=== PATIENT | female | born 1975 | race Caucasian/White ===

== ENCOUNTER 2017-05-04 18:18 | Emergency (ER) | payer MEDICARE, MEDICAID ==
[~2017-05-04] VITALS: Ht 165.1 cm; Wt 124.0 kg
[~2017-05-04 18:18] MED LIST: ACET1TAB12 PO; ALBU8.5H8 IH; ATI1T PO; BUTA-281 PO; BUTA1CAP17 PO; DULO-31 PO; GABA600T2 PO; LAMO25TA PO; METH500T PO; ONDA4TAB9 PO; PRAZ2CAP2 PO; QUET400T PO; TIZA-248 PO
[2017-05-04 19:21] LABS: URINE HCG NEGATIVE (NEG)
[2017-05-04 19:34] LABS: BASOPHILS % (AUTO) 0.3 % (0-1); EOSINOPHILS # (AUTO) 0.2 X10'3 (0-0.9); EOSINOPHILS % (AUTO) 1.5 % (0-6); HEMATOCRIT 41.4 % (35.0-45.0); LYMPHOCYTES # (AUTO) 2.4 X10'3 (1.1-4.8); LYMPHOCYTES % (AUTO) 22.1 % (21-51); MEAN CORPUSCULAR HEMOGLOBIN 30.2 PG (27.0-31.0); MEAN CORPUSCULAR HGB CONC 33.9 % (33.0-36.5); MONOCYTES # (AUTO) 0.5 X10'3 (0-0.9); MONOCYTES % (AUTO) 4.6 % (2-12); NEUTROPHILS # (AUTO) 7.6 X10'3 (1.8-7.7); NEUTROPHILS % (AUTO) 71.5 % (42-75); PLATELET COUNT 340 X10'3 (140-440); RED BLOOD COUNT 4.65 X10'6 (4.20-5.60); RED CELL DISTRIBUTION WIDTH 14.1 % (11.5-14.5); WHITE BLOOD COUNT 10.6 X10'3 (4.5-11.0)
[2017-05-04 19:36] LABS: CLARITY,URINE SLIGHTLY CLOUDY (Clear); COLOR,URINE STRAW (Yellow); GLUCOSE, URINE NEGATIVE (Neg); KETONES,URINE NEGATIVE (Neg); LEUKOCYTE ESTERASE ,URINE SMALL (Neg); NITRITES, URINE NEGATIVE (Neg); OCCULT BLOOD,URINE TRACE-INTACT (Neg); PH,URINE 6.5 (4.8-8.0); PROTEIN,URINE NEGATIVE (Neg); UROBILINOGEN,URINE 0.2 E.U/dL (0.2-1.0)
[2017-05-04 19:37] LABS: URINE AMPHETAMINE SCREEN NEGATIVE (Neg); URINE BARBITUATE SCREEN NEGATIVE (Neg); URINE BENZODIAZEPINES SCREEN NEGATIVE (Neg); URINE CANNABINOID SCREEN NEGATIVE (Neg); URINE COCAINE SCREEN NEGATIVE (Neg); URINE METHADONE SCREEN NEGATIVE (Neg); URINE OPIATE SCREEN NEGATIVE (Neg); URINE PHENCYCLIDINE SCREEN NEGATIVE (Neg)
[2017-05-04 19:39] LABS: UA COLLECTION TYPE CLN CATCH MIDSTREAM
[2017-05-04 19:49] LABS: BACTERIA,URINE FEW /HPF (Neg); MUCUS STRANDS NONE SEEN /LPF (Neg); RBC,URINE NONE SEEN /HPF (0-2); SQUAMOUS EPITHELIAL CELL,UR MODERATE /LPF (FEW); WBC,URINE 0-4 /HPF (0-4)
[2017-05-04 19:49] LABS: ALANINE AMINOTRANSFERASE 20 U/L (12-78); ALBUMIN 3.2 G/DL (3.4-5.0); ALBUMIN/GLOBULIN RATIO 0.7 (1.1-1.5); ALKALINE PHOSPHATASE 95 IU/L (46-116); ANION GAP 9 (8-16); ASPARTATE AMINO TRANSFERASE 11 U/L (10-37); BILIRUBIN,TOTAL 0.3 MG/DL (0.1-1.0); BLOOD UREA NITROGEN 12 MG/DL (7-18); BUN/CREATININE RATIO 13.8 (6.6-38.0); CHLORIDE 105 MMOL/L (99-107); CREATININE 0.87 MG/DL (0.40-0.90); GLUCOSE 102 MG/DL (70-104); POTASSIUM 3.8 MMOL/L (3.5-5.1); SODIUM 138 MMOL/L (135-145); TOTAL CARBON DIOXIDE 23.9 MMOL/L (24-32); TOTAL PROTEIN 7.7 G/DL (6.4-8.2); eGFR 72 ML/MIN
[2017-05-04 20:00] LABS: ACETAMINOPHEN < 2.0 UG/ML (10-30); ETHANOL < 0.010 GM/DL (0.0-0.010)
[2017-05-04] MEDS ORDERED: doxycycline hyclate 100mg tablet.DR PO ONE (20:05)
[2017-05-04] MEDS ORDERED: LORazepam 1 MG tablet PO ONE (20:05)
[2017-05-04 21:45] VITALS: BP 160/88
[2017-05-04] MEDS ORDERED: LISI-600 PO (21:57)
== END 2017-05-04 22:04 ==
LOC: ER 18:18
DX: F32.9 Major depressive disorder, single episode, unspecified (principal); N83.209 Unspecified ovarian cyst, unspecified side; F41.9 Anxiety disorder, unspecified; I10 Essential (primary) hypertension; G89.29 Other chronic pain; Z87.442 Personal history of urinary calculi; Z98.51 Tubal ligation status; Z90.49 Acquired absence of other specified parts of digestive tract; Z79.899 Other long term (current) drug therapy; Z88.0 Allergy status to penicillin; Z88.1 Allergy status to other antibiotic agents; Z88.2 Allergy status to sulfonamides; Z88.6 Allergy status to analgesic agent; Z88.8 Allergy status to other drugs, medicaments and biological substances
CPT/HCPCS: 36415; 80053; 80305; 80320; 80329; 81001; 81025; 84443; 85025; 99285

== ENCOUNTER 2017-05-04 20:55 | Inpatient (IN) | payer MEDICARE, MEDICAID ==
[~2017-05-04] VITALS: Ht 166.4 cm; Wt 127.0 kg
[2017-05-04] MEDS ORDERED: acetaminophen 325mg tablet PO PRN ×2 (21:40)
[2017-05-04] MEDS ORDERED: LISI-600 PO (21:57)
[2017-05-04] MEDS ORDERED: ondansetron 4mg rapidly disintigrating tab PO PRN (22:20)
[2017-05-04] MEDS ORDERED: albuterol 2.5 MG/3 ML nebule NEB PRN (22:25)
[2017-05-04] MEDS: lisinopril 10 MG tablet PO SCH (22:30)
[2017-05-04] MEDS: quetiapine 100mg tablet PO SCH (23:26)
[2017-05-04] MEDS: prazosin 1mg capsule PO SCH (23:27)
[2017-05-05] MEDS: acetaminophen w/codeine (30MG) #3 tablet PO PRN ×3 (00:46→19:11)
[2017-05-05 01:09] VITALS: BP 161/112
[2017-05-05 07:40] VITALS: BP 115/67
[2017-05-05] MEDS: gabapentin 300mg capsule PO SCH ×3 (08:07→20:41)
[2017-05-05 08:34] LABS: CHOL/HDL RATIO 2.8 (0.00-4.99); CHOLESTEROL 138 MG/DL (0-200); HDL CHOLESTEROL 50 MG/DL (35-60); LDL CHOLESTEROL 74 MG/DL (50-100); TRIGLYCERIDES 71 MG/DL (20-135)
[2017-05-05 08:47] LABS: HEMOGLOBIN A1C 4.6 % (4.5-6.2)
[2017-05-05] MEDS: LORazepam 1 MG tablet PO PRN ×2 (12:04→20:42)
[2017-05-05 19:00] VITALS: BP 123/93
[2017-05-05 20:30] VITALS: BP 110/70
[2017-05-05] MEDS: prazosin 1mg capsule PO SCH (20:41)
[2017-05-05] MEDS: lisinopril 10 MG tablet PO SCH (20:41)
[2017-05-05] MEDS: quetiapine 100mg tablet PO SCH (20:41)
[2017-05-05] MEDS: butalbital/acetaminophen/caffeine (Fioricet) tablet PO PRN (20:42)
[2017-05-06] MEDS: gabapentin 300mg capsule PO SCH ×3 (08:04→20:46)
[2017-05-06] MEDS: LORazepam 1 MG tablet PO PRN ×2 (08:04→16:11)
[2017-05-06] MEDS: duloxetine 30mg CAPSULE.DR PO SCH (08:04)
[2017-05-06] MEDS: acetaminophen w/codeine (30MG) #3 tablet PO PRN ×2 (08:08→15:46)
[2017-05-06 08:14] VITALS: BP 138/81
[2017-05-06] MEDS: butalbital/acetaminophen/caffeine (Fioricet) tablet PO PRN (13:01)
[2017-05-06] MEDS: tizanidine 4mg tablet PO PRN (17:18)
[2017-05-06 19:00] VITALS: BP 98/50
[2017-05-06] MEDS: prazosin 1mg capsule PO SCH (20:45)
[2017-05-06] MEDS: quetiapine 100mg tablet PO SCH (20:46)
[2017-05-06] MEDS: lisinopril 10 MG tablet PO SCH (20:46)
[2017-05-07] MEDS: acetaminophen w/codeine (30MG) #3 tablet PO PRN ×4 (02:52→23:03)
[2017-05-07 07:37] VITALS: BP 116/56
[2017-05-07] MEDS: gabapentin 300mg capsule PO SCH ×3 (07:42→20:19)
[2017-05-07] MEDS: duloxetine 30mg CAPSULE.DR PO SCH ×2 (07:42→13:14)
[2017-05-07] MEDS: LORazepam 1 MG tablet PO PRN ×2 (07:49→17:02)
[2017-05-07] MEDS: butalbital/acetaminophen/caffeine (Fioricet) tablet PO PRN ×2 (07:51→14:03)
[2017-05-07 19:00] VITALS: BP 113/79
[2017-05-07] MEDS: quetiapine 100mg tablet PO SCH (20:18)
[2017-05-07] MEDS: lisinopril 10 MG tablet PO SCH (20:19)
[2017-05-07] MEDS: prazosin 1mg capsule PO SCH (20:19)
[2017-05-08] MEDS: LORazepam 1 MG tablet PO PRN ×2 (04:00→11:21)
[2017-05-08 08:00] VITALS: BP 109/55
[2017-05-08] MEDS: duloxetine 30mg CAPSULE.DR PO SCH ×2 (08:01→12:36)
[2017-05-08] MEDS: gabapentin 300mg capsule PO SCH ×3 (08:01→21:19)
[2017-05-08] MEDS: acetaminophen w/codeine (30MG) #3 tablet PO PRN ×2 (08:32→15:54)
[2017-05-08] MEDS: butalbital/acetaminophen/caffeine (Fioricet) tablet PO PRN ×2 (09:38→17:34)
[2017-05-08 20:54] VITALS: BP 112/66
[2017-05-08] MEDS: prazosin 1mg capsule PO SCH (21:18)
[2017-05-08] MEDS: lisinopril 10 MG tablet PO SCH (21:19)
[2017-05-08] MEDS: quetiapine 100mg tablet PO SCH (21:19)
[2017-05-09] MEDS: LORazepam 1 MG tablet PO PRN (04:26)
[2017-05-09] MEDS: acetaminophen w/codeine (30MG) #3 tablet PO PRN ×3 (04:26→16:59)
[2017-05-09 08:00] VITALS: BP 117/56
[2017-05-09] MEDS: gabapentin 300mg capsule PO SCH ×3 (08:26→21:13)
[2017-05-09] MEDS: duloxetine 30mg CAPSULE.DR PO SCH ×2 (08:26→13:36)
[2017-05-09] MEDS: butalbital/acetaminophen/caffeine (Fioricet) tablet PO PRN (10:36)
[2017-05-09] MEDS: hydrOXYzine 10 MG tablet PO PRN (13:36)
[2017-05-09] MEDS: LORazepam 0.5 MG tablet PO PRN (16:20)
[2017-05-09 19:24] VITALS: BP 130/84
[2017-05-09] MEDS: topiramate 25mg tablet PO SCH (21:12)
[2017-05-09] MEDS: prazosin 1mg capsule PO SCH (21:13)
[2017-05-09] MEDS: quetiapine 100mg tablet PO SCH (21:14)
[2017-05-09] MEDS: lisinopril 10 MG tablet PO SCH (21:14)
[2017-05-10] MEDS: LORazepam 0.5 MG tablet PO PRN ×3 (03:57→21:28)
[2017-05-10] MEDS: acetaminophen w/codeine (30MG) #3 tablet PO PRN ×2 (03:57→10:37)
[2017-05-10 07:52] VITALS: BP 104/70
[2017-05-10] MEDS: duloxetine 30mg CAPSULE.DR PO SCH ×2 (08:34→12:45)
[2017-05-10] MEDS: gabapentin 300mg capsule PO SCH ×3 (08:34→21:27)
[2017-05-10] MEDS: butalbital/acetaminophen/caffeine (Fioricet) tablet PO PRN ×2 (08:34→17:48)
[2017-05-10] MEDS: topiramate 25mg tablet PO SCH ×2 (08:35→21:27)
[2017-05-10] MEDS ORDERED: albuterol 2.5 MG/3 ML nebule NEB PRN (11:10)
[2017-05-10] MEDS: HYDROcodone/acetaminophen 5mg/325mg tablet PO PRN (19:09)
[2017-05-10 19:40] VITALS: BP 112/64
[2017-05-10] MEDS: prazosin 1mg capsule PO SCH (21:27)
[2017-05-10] MEDS: lisinopril 10 MG tablet PO SCH (21:28)
[2017-05-10] MEDS: quetiapine 100mg tablet PO SCH (21:28)
[2017-05-11 07:36] VITALS: BP 105/45
[2017-05-11] MEDS: topiramate 25mg tablet PO SCH ×2 (08:07→19:13)
[2017-05-11] MEDS: duloxetine 30mg CAPSULE.DR PO SCH ×2 (08:07→12:28)
[2017-05-11] MEDS: gabapentin 300mg capsule PO SCH ×3 (08:07→21:51)
[2017-05-11] MEDS: hydrOXYzine 10 MG tablet PO PRN (10:40)
[2017-05-11] MEDS: HYDROcodone/acetaminophen 5mg/325mg tablet PO PRN ×2 (10:40→19:12)
[2017-05-11] MEDS: butalbital/acetaminophen/caffeine (Fioricet) tablet PO PRN ×2 (12:28→19:14)
[2017-05-11] MEDS: tizanidine 4mg tablet PO PRN (14:29)
[2017-05-11 19:00] VITALS: BP 96/63
[2017-05-11] MEDS: LORazepam 0.5 MG tablet PO PRN (19:14)
[2017-05-11] MEDS: prazosin 1mg capsule PO SCH (21:51)
[2017-05-11] MEDS: lisinopril 10 MG tablet PO SCH (21:51)
[2017-05-11] MEDS: quetiapine 100mg tablet PO SCH (21:52)
[2017-05-12 07:41] VITALS: BP 96/57
[2017-05-12] MEDS: duloxetine 30mg CAPSULE.DR PO SCH ×2 (08:03→12:30)
[2017-05-12] MEDS: topiramate 25mg tablet PO SCH (08:03)
[2017-05-12] MEDS: butalbital/acetaminophen/caffeine (Fioricet) tablet PO PRN (08:06)
[2017-05-12] MEDS: HYDROcodone/acetaminophen 5mg/325mg tablet PO PRN (08:09)
[2017-05-12] MEDS: gabapentin 300mg capsule PO SCH (09:24)
[2017-05-12] MEDS ORDERED: HYDR-569 PO (10:23)
[2017-05-12] MEDS ORDERED: HYDR-3717 PO (10:23)
[2017-05-12] MEDS ORDERED: TOP25T PO (10:23)
[2017-05-12] MEDS ORDERED: DULO30CA51 PO (10:23)
[2017-05-12] MEDS ORDERED: QUET400T12 PO (10:23)
[2017-05-12] MEDS ORDERED: PRAZ2CAP2 PO (10:23)
[2017-05-12] MEDS ORDERED: ATI0.5T PO (10:23)
[2017-05-12] MEDS: LORazepam 0.5 MG tablet PO PRN (11:34)
== END 2017-05-12 12:15 | disposition home or self-care (01) | DRG 885 ==
LOC: ADULT MH 20:55
PROVIDERS: ADMIT Psychiatry & Neurology Psychiatry; ATTEND Psychiatry & Neurology Psychiatry
DX: F33.2 Major depressive disorder, recurrent severe without psychotic features (principal); R45.851 Suicidal ideations; Z68.42 Body mass index [BMI] 45.0-49.9, adult; F17.210 Nicotine dependence, cigarettes, uncomplicated; I10 Essential (primary) hypertension; J45.909 Unspecified asthma, uncomplicated; F41.9 Anxiety disorder, unspecified; F60.9 Personality disorder, unspecified; E66.9 Obesity, unspecified; F51.4 Sleep terrors [night terrors]; F43.10 Post-traumatic stress disorder, unspecified; G43.909 Migraine, unspecified, not intractable, without status migrainosus; G89.29 Other chronic pain; M54.9 Dorsalgia, unspecified; Z88.2 Allergy status to sulfonamides; Z88.8 Allergy status to other drugs, medicaments and biological substances; Z88.6 Allergy status to analgesic agent; Z88.0 Allergy status to penicillin; Z91.013 Allergy to seafood; Z87.442 Personal history of urinary calculi; Z86.73 Personal history of transient ischemic attack (TIA), and cerebral infarction without residual deficits; Z82.49 Family history of ischemic heart disease and other diseases of the circulatory system; Z71.6 Tobacco abuse counseling
CPT/HCPCS: 36415; 80061; 83036; 87070; 94640; 94760

== ENCOUNTER 2017-06-09 16:44 | Emergency (ER) | payer MEDICARE, MEDICAID ==
[~2017-06-09] VITALS: Ht 165.1 cm; Wt 124.0 kg
[~2017-06-09 16:44] MED LIST changes: -ACET1TAB12 PO; +ATI0.5T PO; -ATI1T PO; -BUTA1CAP17 PO; -DULO-31 PO; +DULO30CA51 PO; +HYDR-3717 PO; +HYDR-569 PO; -LAMO25TA PO; -METH500T PO; -ONDA4TAB9 PO; -QUET400T PO; +QUET400T12 PO; +TOP25T PO
[2017-06-09 17:37] LABS: CLARITY,URINE CLOUDY (Clear); COLOR,URINE STRAW (Yellow); GLUCOSE, URINE NEGATIVE (Neg); KETONES,URINE TRACE mg/dl (Neg); LEUKOCYTE ESTERASE ,URINE SMALL (Neg); NITRITES, URINE NEGATIVE (Neg); OCCULT BLOOD,URINE NEGATIVE (Neg); PROTEIN,URINE NEGATIVE (Neg); UROBILINOGEN,URINE 0.2 E.U/dL (0.2-1.0)
[2017-06-09 17:44] LABS: UA COLLECTION TYPE CLN CATCH MIDSTREAM
[2017-06-09 17:47] LABS: SQUAMOUS EPITHELIAL CELL,UR MANY /LPF (FEW)
[2017-06-09 17:48] LABS: MUCUS STRANDS MANY /LPF (Neg)
[2017-06-09 17:49] LABS: TRANSITIONAL EPI CELLS,URINE FEW /HPF
[2017-06-09 17:51] LABS: BACTERIA,URINE 4+ /HPF (Neg); RBC,URINE 0-2 /HPF (0-2); WBC,URINE 0-4 /HPF (0-4)
[2017-06-09 17:52] LABS: CAL OXALATE CRYSTALS 4+ /HPF (NEGATIVE)
[2017-06-09 18:06] LABS: BASOPHILS # (AUTO) 0.1 X10'3 (0-0.2); BASOPHILS % (AUTO) 0.8 % (0-1); EOSINOPHILS # (AUTO) 0.1 X10'3 (0-0.9); EOSINOPHILS % (AUTO) 0.9 % (0-6); HEMATOCRIT 39.2 % (35.0-45.0); HEMOGLOBIN 13.6 g/dl (12.0-16.0); LYMPHOCYTES # (AUTO) 3.3 X10'3 (1.1-4.8); LYMPHOCYTES % (AUTO) 25.9 % (21-51); MEAN CORPUSCULAR HEMOGLOBIN 30.3 PG (27.0-31.0); MEAN CORPUSCULAR HGB CONC 34.8 % (33.0-36.5); MONOCYTES # (AUTO) 0.6 X10'3 (0-0.9); MONOCYTES % (AUTO) 4.5 % (2-12); NEUTROPHILS # (AUTO) 8.6 X10'3 (1.8-7.7); NEUTROPHILS % (AUTO) 67.9 % (42-75); PLATELET COUNT 349 X10'3 (140-440); RED BLOOD COUNT 4.51 X10'6 (4.20-5.60); RED CELL DISTRIBUTION WIDTH 14.4 % (11.5-14.5); WHITE BLOOD COUNT 12.7 X10'3 (4.5-11.0)
[2017-06-09 18:16] LABS: HCG SERUM QL NEGATIVE
[2017-06-09 18:22] LABS: ALANINE AMINOTRANSFERASE 24 U/L (12-78); ALBUMIN 3.2 G/DL (3.4-5.0); ALBUMIN/GLOBULIN RATIO 0.8 (1.1-1.5); ALKALINE PHOSPHATASE 125 IU/L (46-116); ANION GAP 13 (8-16); ASPARTATE AMINO TRANSFERASE 14 U/L (10-37); BILIRUBIN,TOTAL 0.2 MG/DL (0.1-1.0); BLOOD UREA NITROGEN 8 MG/DL (7-18); BUN/CREATININE RATIO 7.7 (6.6-38.0); CALCIUM 9.9 MG/DL (8.5-10.1); CHLORIDE 107 MMOL/L (99-107); CREATININE 1.04 MG/DL (0.40-0.90); GLUCOSE 120 MG/DL (70-104); LIPASE 82 U/L (73-393); POTASSIUM 3.7 MMOL/L (3.5-5.1); SODIUM 141 MMOL/L (135-145); TOTAL CARBON DIOXIDE 21.5 MMOL/L (24-32); TOTAL PROTEIN 7.2 G/DL (6.4-8.2); eGFR 59 ML/MIN
[2017-06-09] MEDS ORDERED: HYDR-569 PO (21:13)
[2017-06-09 21:22] VITALS: BP 142/79
== END 2017-06-09 21:26 | disposition home or self-care (01) ==
LOC: ER 16:44
DX: R10.32 Left lower quadrant pain (principal); I10 Essential (primary) hypertension; G89.29 Other chronic pain; Z90.49 Acquired absence of other specified parts of digestive tract; Z98.51 Tubal ligation status; Z88.0 Allergy status to penicillin; Z88.2 Allergy status to sulfonamides; Z91.013 Allergy to seafood; Z79.899 Other long term (current) drug therapy
CPT/HCPCS: 36415; 74176; 80053; 81001; 83690; 84703; 85025; 99285

== ENCOUNTER 2017-06-22 20:03 | Emergency (ER) | payer MEDICARE, MEDICAID ==
[~2017-06-22] VITALS: Ht 167.6 cm; Wt 124.1 kg
[2017-06-22] MEDS ORDERED: ondansetron 4 MG/5 ML oral solution 5ml CUP PO ONE (21:20)
[2017-06-22] MEDS ORDERED: morphine 4 MG/ML inj SYRINge IV ONE (21:25)
[2017-06-22] MEDS ORDERED: ondansetron/PF 4mg/2ml inj IM ONE (22:40)
[2017-06-22] MEDS ORDERED: morphine 4 MG/ML inj SYRINge IM ONE (22:40)
[2017-06-22] MEDS ORDERED: HYDR-3965 PO (23:11)
[2017-06-22 23:22] VITALS: BP 118/76
== END 2017-06-22 23:30 | disposition home or self-care (01) ==
LOC: ER 20:04
DX: S06.0X0A Concussion without loss of consciousness, initial encounter (principal); S00.81XA Abrasion of other part of head, initial encounter; I10 Essential (primary) hypertension; G89.29 Other chronic pain; F17.200 Nicotine dependence, unspecified, uncomplicated; Z88.0 Allergy status to penicillin; Z88.6 Allergy status to analgesic agent; Z90.49 Acquired absence of other specified parts of digestive tract; W01.0XXA Fall on same level from slipping, tripping and stumbling without subsequent striking against object, initial encounter; Y93.89 Activity, other specified; Y92.89 Other specified places as the place of occurrence of the external cause; Y99.8 Other external cause status
CPT/HCPCS: 70450; 70486; 96372; 99284; J2270; J2405

== ENCOUNTER → 2017-07-07 | Emergency (ER) | payer MEDICARE, MEDICAID ==
[~2017-07-07] VITALS: Ht 165.1 cm; Wt 125.0 kg
[~2017-07-07] MED LIST changes: +HYDR-3965 PO; +ONDA8TAB9 PO; +bisacodyl 10mg suppository rectal RC ONE; +ondansetron 4mg rapidly disintigrating tab PO ONE
[2017-07-07 06:43] LABS: BASOPHILS # (AUTO) 0.1 X10'3 (0-0.2); BASOPHILS % (AUTO) 0.7 % (0-1); EOSINOPHILS # (AUTO) 0.2 X10'3 (0-0.9); EOSINOPHILS % (AUTO) 2.7 % (0-6); HEMOGLOBIN 14.1 g/dl (12.0-16.0); LYMPHOCYTES # (AUTO) 2.6 X10'3 (1.1-4.8); LYMPHOCYTES % (AUTO) 34.4 % (21-51); MEAN CORPUSCULAR HEMOGLOBIN 30.1 PG (27.0-31.0); MEAN CORPUSCULAR HGB CONC 34.4 % (33.0-36.5); MEAN CORPUSCULAR VOLUME 87.4 FL (78-98); MEAN PLATELET VOLUME 7.9 FL (7.4-10.4); MONOCYTES # (AUTO) 0.4 X10'3 (0-0.9); MONOCYTES % (AUTO) 5.6 % (2-12); NEUTROPHILS # (AUTO) 4.2 X10'3 (1.8-7.7); NEUTROPHILS % (AUTO) 56.6 % (42-75); PLATELET COUNT 328 X10'3 (140-440); RED BLOOD COUNT 4.69 X10'6 (4.20-5.60); RED CELL DISTRIBUTION WIDTH 14.7 % (11.5-14.5); WHITE BLOOD COUNT 7.5 X10'3 (4.5-11.0)
[2017-07-07 06:44] LABS: CLARITY,URINE CLEAR (Clear); COLOR,URINE YELLOW (Yellow); GLUCOSE, URINE NEGATIVE (Neg); KETONES,URINE NEGATIVE (Neg); LEUKOCYTE ESTERASE ,URINE NEGATIVE (Neg); NITRITES, URINE NEGATIVE (Neg); OCCULT BLOOD,URINE NEGATIVE (Neg); PH,URINE 6.5 (4.8-8.0); PROTEIN,URINE NEGATIVE (Neg); UROBILINOGEN,URINE 0.2 E.U/dL (0.2-1.0)
[2017-07-07 06:51] LABS: PROTHROMBIN TIME 10.1 SECONDS (9.0-12.0)
[2017-07-07 06:53] LABS: UA COLLECTION TYPE CLN CATCH MIDSTREAM
[2017-07-07 07:00] LABS: ALANINE AMINOTRANSFERASE 23 U/L (12-78); ALBUMIN/GLOBULIN RATIO 0.7 (1.1-1.5); ALKALINE PHOSPHATASE 157 IU/L (46-116); ANION GAP 7 (8-16); ASPARTATE AMINO TRANSFERASE 8 U/L (10-37); BILIRUBIN,TOTAL 0.3 MG/DL (0.1-1.0); BLOOD UREA NITROGEN 9 MG/DL (7-18); BUN/CREATININE RATIO 8.7 (6.6-38.0); CALCIUM 9.9 MG/DL (8.5-10.1); CHLORIDE 105 MMOL/L (99-107); CREATININE 1.04 MG/DL (0.40-0.90); GLUCOSE 97 MG/DL (70-104); POTASSIUM 3.7 MMOL/L (3.5-5.1); SODIUM 141 MMOL/L (135-145); TOTAL CARBON DIOXIDE 29.1 MMOL/L (24-32); TOTAL PROTEIN 7.3 G/DL (6.4-8.2); eGFR 59 ML/MIN
[2017-07-07 07:46] VITALS: BP 133/90
== END | disposition home or self-care (01) ==
LOC: ER 05:53
DX: K59.00 Constipation, unspecified (principal); R11.0 Nausea; R10.32 Left lower quadrant pain; I10 Essential (primary) hypertension; G89.29 Other chronic pain; Z90.49 Acquired absence of other specified parts of digestive tract; Z88.0 Allergy status to penicillin; Z88.2 Allergy status to sulfonamides; Z88.6 Allergy status to analgesic agent
CPT/HCPCS: 36415; 74018; 80053; 81003; 85025; 85610; 99283; 99285

== ENCOUNTER 2017-07-25 19:16 | Emergency (ER) | payer MEDICARE, MEDICAID ==
[~2017-07-25] VITALS: Ht 165.1 cm; Wt 129.6 kg
[~2017-07-25 19:16] MED LIST changes: -HYDR-3965 PO; -bisacodyl 10mg suppository rectal RC ONE; -ondansetron 4mg rapidly disintigrating tab PO ONE
[2017-07-25 19:38] VITALS: BP 169/95
[2017-07-25 21:01] LABS: CLARITY,URINE Cloudy (Clear); COLOR,URINE Yellow (Yellow); GLUCOSE, URINE Negative (Neg); KETONES,URINE Negative (Neg); LEUKOCYTE ESTERASE ,URINE Negative (Neg); NITRITES, URINE Negative (Neg); OCCULT BLOOD,URINE Small (Neg); PROTEIN,URINE Negative (Neg)
[2017-07-25 21:04] LABS: UA COLLECTION TYPE CLN CATCH MIDSTREAM
[2017-07-25] MEDS ORDERED: BISA10SU60 RC (21:13)
[2017-07-25] MEDS ORDERED: POLY17PO10 PO (21:13)
[2017-07-25 21:18] LABS: AMORPHOUS URATES 4+; BACTERIA,URINE FEW /HPF (Neg); MUCUS STRANDS FEW /LPF (Neg); RBC,URINE 0-2 /HPF (0-2); SQUAMOUS EPITHELIAL CELL,UR FEW /LPF (FEW); WBC,URINE NONE SEEN /HPF (0-4)
== END 2017-07-25 21:33 | disposition home or self-care (01) ==
LOC: ER 19:17
DX: K59.00 Constipation, unspecified (principal); G89.29 Other chronic pain; M54.5 Low back pain; I10 Essential (primary) hypertension; F32.9 Major depressive disorder, single episode, unspecified; Z90.49 Acquired absence of other specified parts of digestive tract; Z88.6 Allergy status to analgesic agent; Z88.2 Allergy status to sulfonamides; Z88.0 Allergy status to penicillin
CPT/HCPCS: 74018; 81001; 99285

== ENCOUNTER 2017-08-02 06:49 | Inpatient (IN) | payer MEDICARE, MEDICAID ==
[~2017-08-02] VITALS: Ht 172.7 cm; Wt 110.0 kg
[~2017-08-02 06:49] MED LIST changes: +BISA10SU60 RC; +POLY17PO10 PO
[2017-08-02 07:19] LABS: BASOPHILS # (AUTO) 0.1 X10'3 (0-0.2); BASOPHILS % (AUTO) 0.5 % (0-1); EOSINOPHILS # (AUTO) 0.2 X10'3 (0-0.9); EOSINOPHILS % (AUTO) 2.3 % (0-6); HEMATOCRIT 37.3 % (35.0-45.0); LYMPHOCYTES # (AUTO) 1.9 X10'3 (1.1-4.8); LYMPHOCYTES % (AUTO) 18.1 % (21-51); MEAN CORPUSCULAR HEMOGLOBIN 30.4 PG (27.0-31.0); MEAN CORPUSCULAR HGB CONC 34.8 % (33.0-36.5); MEAN CORPUSCULAR VOLUME 87.3 FL (78-98); MEAN PLATELET VOLUME 7.8 FL (7.4-10.4); MONOCYTES # (AUTO) 0.4 X10'3 (0-0.9); MONOCYTES % (AUTO) 3.9 % (2-12); NEUTROPHILS % (AUTO) 75.2 % (42-75); PLATELET COUNT 257 X10'3 (140-440); RED BLOOD COUNT 4.27 X10'6 (4.20-5.60); RED CELL DISTRIBUTION WIDTH 14.6 % (11.5-14.5); WHITE BLOOD COUNT 10.6 X10'3 (4.5-11.0)
[2017-08-02 07:37] LABS: LACTIC SEPSIS 3.6 MMOL/L (0.4-2.0)
[2017-08-02 07:44] LABS: ALANINE AMINOTRANSFERASE 21 U/L (12-78); ALBUMIN 2.8 G/DL (3.4-5.0); ALBUMIN/GLOBULIN RATIO 0.7 (1.1-1.5); ALKALINE PHOSPHATASE 149 IU/L (46-116); ANION GAP 13 (8-16); ASPARTATE AMINO TRANSFERASE 11 U/L (10-37); BILIRUBIN,TOTAL 0.2 MG/DL (0.1-1.0); BLOOD UREA NITROGEN 12 MG/DL (7-18); BUN/CREATININE RATIO 11.3 (6.6-38.0); CALCIUM 9.2 MG/DL (8.5-10.1); CHLORIDE 105 MMOL/L (99-107); CREATININE 1.06 MG/DL (0.40-0.90); ETHANOL < 0.010 GM/DL (0.0-0.010); GLUCOSE 206 MG/DL (70-104); POTASSIUM 3.2 MMOL/L (3.5-5.1); SODIUM 140 MMOL/L (135-145); TOTAL CARBON DIOXIDE 22.3 MMOL/L (24-32); TOTAL PROTEIN 6.9 G/DL (6.4-8.2); TROPONIN I < 0.04 NG/ML (0.0-0.05); eGFR 58 ML/MIN
[2017-08-02 07:52] LABS: ACETAMINOPHEN < 2.0 UG/ML (10-30)
[2017-08-02 08:30] LABS: CLARITY,URINE SLIGHTLY CLOUDY (Clear); COLOR,URINE YELLOW (Yellow); GLUCOSE, URINE NEGATIVE (Neg); KETONES,URINE NEGATIVE (Neg); LEUKOCYTE ESTERASE ,URINE NEGATIVE (Neg); NITRITES, URINE NEGATIVE (Neg); OCCULT BLOOD,URINE LARGE (Neg); PROTEIN,URINE NEGATIVE (Neg); UROBILINOGEN,URINE 0.2 E.U/dL (0.2-1.0)
[2017-08-02] MEDS ORDERED: ondansetron/PF 4mg/2ml inj IV ONE (08:30)
[2017-08-02] MEDS ORDERED: potassium Cl 20 mEq SR tablet PO STA (08:31)
[2017-08-02 08:34] LABS: UA COLLECTION TYPE STRAIGHT CATH
[2017-08-02 08:39] LABS: MUCUS STRANDS MANY /LPF (Neg); SQUAMOUS EPITHELIAL CELL,UR MANY /LPF (FEW)
[2017-08-02 08:40] LABS: RBC,URINE 20-50 /HPF (0-2); WBC,URINE 0-4 /HPF (0-4)
[2017-08-02 08:41] LABS: BACTERIA,URINE NONE SEEN /HPF (Neg); TRANSITIONAL EPI CELLS,URINE FEW /HPF
[2017-08-02 09:19] LABS: URINE AMPHETAMINE SCREEN NEGATIVE (Neg); URINE BARBITUATE SCREEN NEGATIVE (Neg); URINE BENZODIAZEPINES SCREEN NEGATIVE (Neg); URINE CANNABINOID SCREEN NEGATIVE (Neg); URINE COCAINE SCREEN NEGATIVE (Neg); URINE METHADONE SCREEN NEGATIVE (Neg); URINE OPIATE SCREEN NEGATIVE (Neg); URINE PHENCYCLIDINE SCREEN NEGATIVE (Neg)
[2017-08-02] MEDS: normal saline 1000ml 1,000 ML IV SCH ×2 (11:22→21:22)
[2017-08-02] MEDS ORDERED: LORazepam 2 mg/ml vial IV PRN (11:25)
[2017-08-02] MEDS ORDERED: mag hydrox/Alum hydrox/simeth 30ml oral suspension PO PRN (11:25)
[2017-08-02] MEDS ORDERED: magnesium 2GM in 50ml NS 50 ML IV PRN (11:25)
[2017-08-02] MEDS: K and/or MAG REPLACEMENT MC SCH (11:25)
[2017-08-02] MEDS ORDERED: magnesium hydroxide 30ml (MOM) UD suspension PO PRN (11:25)
[2017-08-02] MEDS ORDERED: potassium Cl 40MEQ/NS 500ml 500 ML IV PRN ×2 (11:25)
[2017-08-02] MEDS ORDERED: magnesium 4gm in 100ml NS 100 ML IV PRN (11:25)
[2017-08-02] MEDS ORDERED: ondansetron/PF 4mg/2ml inj IV PRN (11:25)
[2017-08-02] MEDS ORDERED: acetaminophen 325mg tablet PO PRN ×2 (11:25)
[2017-08-02] MEDS ORDERED: magnesium Cl slow-release 64mg tablet PO PRN (11:25)
[2017-08-02] MEDS ORDERED: potassium Cl 20 mEq SR tablet PO PRN ×2 (11:25)
[2017-08-02 15:30] VITALS: BP 119/68
[2017-08-02] MEDS ORDERED: OLAN10TA19 (18:54)
[2017-08-02 19:10] VITALS: BP 143/83
[2017-08-02 23:53] VITALS: BP 145/86
[2017-08-03] MEDS: normal saline 1000ml 1,000 ML IV SCH ×2 (03:14→17:04)
[2017-08-03 06:28] LABS: ALANINE AMINOTRANSFERASE 17 U/L (12-78); ALBUMIN 2.2 G/DL (3.4-5.0); ALBUMIN/GLOBULIN RATIO 0.6 (1.1-1.5); ALKALINE PHOSPHATASE 127 IU/L (46-116); ANION GAP 9 (8-16); ASPARTATE AMINO TRANSFERASE 6 U/L (10-37); BILIRUBIN,TOTAL 0.1 MG/DL (0.1-1.0); BLOOD UREA NITROGEN 14 MG/DL (7-18); BUN/CREATININE RATIO 15.2 (6.6-38.0); CALCIUM 9.2 MG/DL (8.5-10.1); CHLORIDE 111 MMOL/L (99-107); CREATININE 0.92 MG/DL (0.40-0.90); GLUCOSE 99 MG/DL (70-104); MAGNESIUM 1.8 MG/DL (1.5-2.4); PHOSPHORUS 3.1 MG/DL (2.3-4.5); POTASSIUM 3.5 MMOL/L (3.5-5.1); SODIUM 146 MMOL/L (135-145); TOTAL CARBON DIOXIDE 26.2 MMOL/L (24-32); TOTAL PROTEIN 5.8 G/DL (6.4-8.2); eGFR 68 ML/MIN
[2017-08-03 06:48] LABS: BASOPHILS # (AUTO) 0.1 X10'3 (0-0.2); BASOPHILS % (AUTO) 0.7 % (0-1); EOSINOPHILS % (AUTO) 0.5 % (0-6); HEMOGLOBIN 12.1 g/dl (12.0-16.0); LYMPHOCYTES % (AUTO) 30.2 % (21-51); MEAN CORPUSCULAR HEMOGLOBIN 30.7 PG (27.0-31.0); MEAN CORPUSCULAR HGB CONC 35.5 % (33.0-36.5); MEAN CORPUSCULAR VOLUME 86.6 FL (78-98); MEAN PLATELET VOLUME 8.7 FL (7.4-10.4); MONOCYTES # (AUTO) 0.6 X10'3 (0-0.9); MONOCYTES % (AUTO) 5.7 % (2-12); NEUTROPHILS # (AUTO) 6.2 X10'3 (1.8-7.7); NEUTROPHILS % (AUTO) 62.9 % (42-75); PLATELET COUNT 257 X10'3 (140-440); RED BLOOD COUNT 3.93 X10'6 (4.20-5.60); RED CELL DISTRIBUTION WIDTH 14.1 % (11.5-14.5); WHITE BLOOD COUNT 9.9 X10'3 (4.5-11.0)
[2017-08-03 07:00] VITALS: BP 133/74
[2017-08-03] MEDS: K and/or MAG REPLACEMENT MC SCH (08:00)
[2017-08-03] MEDS: enoxaparin 40mg/0.4ml syringe SQ SCH (09:10)
[2017-08-03 12:00] VITALS: BP 133/85
[2017-08-03] MEDS ORDERED: TIZA-248 PO (16:15)
[2017-08-03] MEDS ORDERED: QUET300T19 PO (16:18)
[2017-08-03] MEDS ORDERED: METH500T6 PO (16:27)
[2017-08-03] MEDS ORDERED: CARB200T40 PO (16:27)
[2017-08-03] MEDS: diazepam 5mg tablet PO PRN (17:02)
[2017-08-03] MEDS ORDERED: tizanidine 4mg tablet PO PRN (17:45)
[2017-08-03] MEDS ORDERED: METHOCARBAMOL 500 MG PO PRN (17:45)
[2017-08-03] MEDS ORDERED: non-formulary drug (Carbamazepine 200 MG) PO PRN (17:45)
[2017-08-03] MEDS ORDERED: LORazepam 0.5 MG tablet PO PRN (17:45)
[2017-08-03] MEDS ORDERED: BUTA1CAP44 PO (17:49)
[2017-08-03] MEDS ORDERED: albuterol 2.5 MG/3 ML nebule NEB PRN (17:50)
[2017-08-03] MEDS ORDERED: carBAMazepine 100mg chewable tablet PO PRN (18:05)
[2017-08-03] MEDS ORDERED: butalbital/acetaminophen/caffeine (Fioricet) tablet PO PRN (18:15)
[2017-08-03 19:50] VITALS: BP 142/88
[2017-08-03] MEDS: METHOCARBAMOL 500 MG PO SCH (20:00)
[2017-08-03] MEDS: quetiapine 100mg tablet PO SCH (21:39)
[2017-08-03] MEDS: prazosin 1mg capsule PO SCH (21:39)
[2017-08-03] MEDS: topiramate 25mg tablet PO SCH (21:40)
[2017-08-03] MEDS: olanzapine 10mg tablet PO SCH (21:40)
[2017-08-03] MEDS: gabapentin 300mg capsule PO SCH (21:40)
[2017-08-04] VITALS: BP 133/91
[2017-08-04] MEDS: normal saline 1000ml 1,000 ML IV SCH ×3 (03:22→19:49)
[2017-08-04] MEDS: diazepam 5mg tablet PO PRN ×2 (05:36→19:43)
[2017-08-04 06:05] LABS: BASOPHILS % (AUTO) 0.5 % (0-1); EOSINOPHILS # (AUTO) 0.3 X10'3 (0-0.9); EOSINOPHILS % (AUTO) 4.2 % (0-6); HEMATOCRIT 34.6 % (35.0-45.0); HEMOGLOBIN 11.8 g/dl (12.0-16.0); LYMPHOCYTES % (AUTO) 42.8 % (21-51); MEAN CORPUSCULAR HEMOGLOBIN 29.9 PG (27.0-31.0); MEAN CORPUSCULAR VOLUME 87.9 FL (78-98); MEAN PLATELET VOLUME 8.2 FL (7.4-10.4); MONOCYTES # (AUTO) 0.3 X10'3 (0-0.9); MONOCYTES % (AUTO) 4.9 % (2-12); NEUTROPHILS # (AUTO) 3.3 X10'3 (1.8-7.7); NEUTROPHILS % (AUTO) 47.6 % (42-75); PLATELET COUNT 237 X10'3 (140-440); RED BLOOD COUNT 3.94 X10'6 (4.20-5.60); RED CELL DISTRIBUTION WIDTH 15.3 % (11.5-14.5)
[2017-08-04 06:49] LABS: ALANINE AMINOTRANSFERASE 12 U/L (12-78); ALBUMIN 2.2 G/DL (3.4-5.0); ALBUMIN/GLOBULIN RATIO 0.6 (1.1-1.5); ALKALINE PHOSPHATASE 120 IU/L (46-116); ANION GAP 8 (8-16); ASPARTATE AMINO TRANSFERASE 8 U/L (10-37); BILIRUBIN,TOTAL 0.1 MG/DL (0.1-1.0); BLOOD UREA NITROGEN 17 MG/DL (7-18); BUN/CREATININE RATIO 18.7 (6.6-38.0); CALCIUM 9.4 MG/DL (8.5-10.1); CHLORIDE 108 MMOL/L (99-107); CREATININE 0.91 MG/DL (0.40-0.90); GLUCOSE 98 MG/DL (70-104); MAGNESIUM 1.7 MG/DL (1.5-2.4); PHOSPHORUS 3.2 MG/DL (2.3-4.5); POTASSIUM 3.5 MMOL/L (3.5-5.1); SODIUM 143 MMOL/L (135-145); TOTAL CARBON DIOXIDE 27.5 MMOL/L (24-32); TOTAL PROTEIN 5.9 G/DL (6.4-8.2); eGFR 69 ML/MIN
[2017-08-04] MEDS: METHOCARBAMOL 500 MG PO SCH ×2 (08:00→19:51)
[2017-08-04] MEDS: K and/or MAG REPLACEMENT MC SCH (08:00)
[2017-08-04] MEDS: enoxaparin 40mg/0.4ml syringe SQ SCH (08:47)
[2017-08-04] MEDS: duloxetine 30mg CAPSULE.DR PO SCH ×2 (08:48→12:57)
[2017-08-04] MEDS: gabapentin 300mg capsule PO SCH ×3 (08:48→22:11)
[2017-08-04] MEDS: topiramate 25mg tablet PO SCH ×2 (08:48→19:43)
[2017-08-04 09:05] VITALS: BP 94/54
[2017-08-04 11:32] VITALS: BP 153/87
[2017-08-04 20:00] VITALS: BP 146/87
[2017-08-04] MEDS: prazosin 1mg capsule PO SCH (22:11)
[2017-08-04] MEDS: quetiapine 100mg tablet PO SCH (22:11)
[2017-08-04] MEDS: olanzapine 10mg tablet PO SCH (22:12)
[2017-08-04 23:12] VITALS: BP 135/84
[2017-08-05 06:19] LABS: ALANINE AMINOTRANSFERASE 15 U/L (12-78); ALBUMIN/GLOBULIN RATIO 0.6 (1.1-1.5); ALKALINE PHOSPHATASE 111 IU/L (46-116); ANION GAP 6 (8-16); ASPARTATE AMINO TRANSFERASE 13 U/L (10-37); BILIRUBIN,TOTAL 0.2 MG/DL (0.1-1.0); BLOOD UREA NITROGEN 14 MG/DL (7-18); CHLORIDE 108 MMOL/L (99-107); GLUCOSE 89 MG/DL (70-104); MAGNESIUM 1.7 MG/DL (1.5-2.4); PHOSPHORUS 3.1 MG/DL (2.3-4.5); SODIUM 141 MMOL/L (135-145); TOTAL CARBON DIOXIDE 27.3 MMOL/L (24-32); TOTAL PROTEIN 5.5 G/DL (6.4-8.2); eGFR > 90 ML/MIN
[2017-08-05 07:18] VITALS: BP 122/87
[2017-08-05 07:36] LABS: BASOPHILS % (AUTO) 0.5 % (0-1); EOSINOPHILS # (AUTO) 0.5 X10'3 (0-0.9); EOSINOPHILS % (AUTO) 6.4 % (0-6); HEMATOCRIT 36.3 % (35.0-45.0); HEMOGLOBIN 12.6 g/dl (12.0-16.0); LYMPHOCYTES # (AUTO) 2.5 X10'3 (1.1-4.8); MEAN CORPUSCULAR HGB CONC 34.5 % (33.0-36.5); MEAN CORPUSCULAR VOLUME 86.9 FL (78-98); MEAN PLATELET VOLUME 7.9 FL (7.4-10.4); MONOCYTES # (AUTO) 0.4 X10'3 (0-0.9); MONOCYTES % (AUTO) 6.1 % (2-12); NEUTROPHILS # (AUTO) 3.7 X10'3 (1.8-7.7); PLATELET COUNT 239 X10'3 (140-440); RED BLOOD COUNT 4.18 X10'6 (4.20-5.60); RED CELL DISTRIBUTION WIDTH 14.7 % (11.5-14.5); WHITE BLOOD COUNT 7.1 X10'3 (4.5-11.0)
[2017-08-05] MEDS: duloxetine 30mg CAPSULE.DR PO SCH ×2 (07:47→12:58)
[2017-08-05] MEDS: gabapentin 300mg capsule PO SCH ×2 (07:47→12:59)
[2017-08-05] MEDS: topiramate 25mg tablet PO SCH (07:48)
[2017-08-05] MEDS: enoxaparin 40mg/0.4ml syringe SQ SCH (07:49)
[2017-08-05] MEDS: diazepam 5mg tablet PO PRN (07:52)
[2017-08-05] MEDS: K and/or MAG REPLACEMENT MC SCH (07:57)
[2017-08-05] MEDS: METHOCARBAMOL 500 MG PO SCH (07:58)
[2017-08-05] MEDS: normal saline 1000ml 1,000 ML IV SCH (09:22)
[2017-08-05 11:30] VITALS: BP 144/90
== END 2017-08-05 14:16 | DRG 917 ==
LOC: ER 06:49 → ED HOLD 11:22 → MED 3N 15:25
PROVIDERS: ADMIT Family Medicine; ATTEND Family Medicine
DX: T43.592A Poisoning by other antipsychotics and neuroleptics, intentional self-harm, initial encounter (principal); G92 Toxic encephalopathy; E43 Unspecified severe protein-calorie malnutrition; F33.2 Major depressive disorder, recurrent severe without psychotic features; N17.9 Acute kidney failure, unspecified; E87.0 Hyperosmolality and hypernatremia; E87.1 Hypo-osmolality and hyponatremia; E87.2 Acidosis; F41.9 Anxiety disorder, unspecified; G43.909 Migraine, unspecified, not intractable, without status migrainosus; M54.9 Dorsalgia, unspecified; E87.6 Hypokalemia; F43.10 Post-traumatic stress disorder, unspecified; J45.909 Unspecified asthma, uncomplicated; G89.29 Other chronic pain; I10 Essential (primary) hypertension; Z90.49 Acquired absence of other specified parts of digestive tract; Z98.51 Tubal ligation status; Z88.6 Allergy status to analgesic agent; Z88.1 Allergy status to other antibiotic agents; Z88.0 Allergy status to penicillin; Z88.8 Allergy status to other drugs, medicaments and biological substances; Z79.899 Other long term (current) drug therapy; Z86.73 Personal history of transient ischemic attack (TIA), and cerebral infarction without residual deficits; Z87.442 Personal history of urinary calculi; Z83.42 Family history of familial hypercholesterolemia; Z82.49 Family history of ischemic heart disease and other diseases of the circulatory system; Z84.89 Family history of other specified conditions; Z68.36 Body mass index [BMI] 36.0-36.9, adult
CPT/HCPCS: 36415; 70450; 71045; 80053; 80305; 80320; 80329; 81001; 82140; 82948; 83605; 83735; 84100; 84443; 84484; 85025; 87040; 87070; 93005; 96374; 99285; A4315; J1650; J2405; J3480; J3490; J7030

== ENCOUNTER 2017-08-05 15:03 | Inpatient (IN) | payer MEDICARE, MEDICAID ==
[~2017-08-05] VITALS: Ht 165.1 cm; Wt 128.6 kg
[~2017-08-05 15:03] MED LIST changes: -BISA10SU60 RC; +BUTA1CAP44 PO; +CARB200T40 PO; -HYDR-3717 PO; -HYDR-569 PO; +METH500T6 PO; +OLAN10TA19; -ONDA8TAB9 PO; -POLY17PO10 PO; +QUET300T19 PO; -QUET400T12 PO
[2017-08-05] MEDS ORDERED: acetaminophen 325mg tablet PO PRN ×2 (16:40)
[2017-08-05] MEDS ORDERED: magnesium hydroxide 30ml (MOM) UD suspension PO PRN (16:40)
[2017-08-05] MEDS ORDERED: mag hydrox/Alum hydrox/simeth 30ml oral suspension PO PRN (16:40)
[2017-08-05 17:36] VITALS: BP 153/98
[2017-08-05] MEDS ORDERED: albuterol 2.5 MG/3 ML nebule NEB PRN (17:40)
[2017-08-05] MEDS ORDERED: cyclobenzaprine 10mg tablet PO PRN (17:45)
[2017-08-05] MEDS ORDERED: METHOCARBAMOL 500MG PO PRN (17:45)
[2017-08-05] MEDS ORDERED: diazepam 5mg tablet PO PRN (17:45)
[2017-08-05] MEDS ORDERED: carBAMazepine 100mg chewable tablet PO PRN (17:45)
[2017-08-05 19:40] VITALS: BP 145/97
[2017-08-05] MEDS: gabapentin 300mg capsule PO SCH (21:19)
[2017-08-05] MEDS: quetiapine 100mg tablet PO SCH (21:19)
[2017-08-05] MEDS: olanzapine 10mg tablet PO SCH (21:19)
[2017-08-05] MEDS: nystatin 15 GM powder TP SCH (21:20)
[2017-08-06 07:35] VITALS: BP 135/97
[2017-08-06] MEDS: duloxetine 30mg CAPSULE.DR PO SCH ×2 (08:01→12:18)
[2017-08-06] MEDS: gabapentin 300mg capsule PO SCH ×3 (08:01→20:38)
[2017-08-06] MEDS: nystatin 15 GM powder TP SCH ×4 (08:01→21:00)
[2017-08-06 08:11] LABS: CHOL/HDL RATIO 3.8 (0.00-4.99); CHOLESTEROL 183 MG/DL (0-200); HDL CHOLESTEROL 48 MG/DL (35-60); LDL CHOLESTEROL 99 MG/DL (50-100); TRIGLYCERIDES 139 MG/DL (20-135)
[2017-08-06 08:19] LABS: HEMOGLOBIN A1C 5.4 % (4.5-6.2)
[2017-08-06] MEDS: LORazepam 0.5 MG tablet PO PRN ×3 (09:02→20:39)
[2017-08-06] MEDS ORDERED: ipratropium/albuterol 3ml nebule NEB PRN (17:10)
[2017-08-06] MEDS: HYDROchlorothiazide 12.5mg capsule PO SCH (17:53)
[2017-08-06] MEDS: lisinopril 20mg tablet PO SCH (17:53)
[2017-08-06 19:10] VITALS: BP 115/74
[2017-08-06] MEDS: prazosin 1mg capsule PO SCH (20:37)
[2017-08-06] MEDS: quetiapine 100mg tablet PO SCH (20:38)
[2017-08-06] MEDS: olanzapine 10mg tablet PO SCH (20:38)
[2017-08-07 08:00] VITALS: BP 122/68
[2017-08-07] MEDS: duloxetine 30mg CAPSULE.DR PO SCH ×2 (08:15→13:35)
[2017-08-07] MEDS: lisinopril 20mg tablet PO SCH (08:15)
[2017-08-07] MEDS: HYDROchlorothiazide 12.5mg capsule PO SCH (08:16)
[2017-08-07] MEDS: gabapentin 300mg capsule PO SCH ×3 (08:16→20:05)
[2017-08-07] MEDS: nystatin 15 GM powder TP SCH ×3 (08:23→20:05)
[2017-08-07] MEDS: LORazepam 0.5 MG tablet PO PRN ×2 (08:30→20:04)
[2017-08-07] MEDS: QUEtiapine 25mg tablet PO PRN (11:11)
[2017-08-07] MEDS: butalbital/acetaminophen/caffeine (Fioricet) tablet PO PRN (17:06)
[2017-08-07 19:08] VITALS: BP 110/74
[2017-08-07] MEDS: prazosin 1mg capsule PO SCH (20:05)
[2017-08-07] MEDS: olanzapine 10mg tablet PO SCH (20:05)
[2017-08-07] MEDS: quetiapine 100mg tablet PO SCH (20:05)
[2017-08-08] MEDS: butalbital/acetaminophen/caffeine (Fioricet) tablet PO PRN ×3 (03:33→16:57)
[2017-08-08] MEDS: gabapentin 300mg capsule PO SCH ×3 (07:45→21:10)
[2017-08-08] MEDS: duloxetine 30mg CAPSULE.DR PO SCH ×2 (07:45→13:12)
[2017-08-08] MEDS: QUEtiapine 25mg tablet PO PRN ×2 (07:46→09:02)
[2017-08-08] MEDS: lisinopril 20mg tablet PO SCH (07:48)
[2017-08-08] MEDS: LORazepam 0.5 MG tablet PO PRN ×2 (07:48→16:57)
[2017-08-08] MEDS: HYDROchlorothiazide 12.5mg capsule PO SCH (07:48)
[2017-08-08] MEDS: nystatin 15 GM powder TP SCH ×3 (07:51→21:11)
[2017-08-08 08:00] VITALS: BP 128/80
[2017-08-08] MEDS: HYDROcodone/acetaminophen 5mg/325mg tablet PO PRN (13:53)
[2017-08-08 19:54] VITALS: BP 115/69
[2017-08-08] MEDS: prazosin 1mg capsule PO SCH (21:10)
[2017-08-08] MEDS: quetiapine 100mg tablet PO SCH (21:10)
[2017-08-08] MEDS: olanzapine 10mg tablet PO SCH (21:11)
[2017-08-09] MEDS: tizanidine 4mg tablet PO PRN ×3 (00:38→13:24)
[2017-08-09 08:00] VITALS: BP 105/73
[2017-08-09] MEDS: butalbital/acetaminophen/caffeine (Fioricet) tablet PO PRN ×3 (08:16→21:05)
[2017-08-09] MEDS: lisinopril 20mg tablet PO SCH (08:16)
[2017-08-09] MEDS: HYDROchlorothiazide 12.5mg capsule PO SCH (08:16)
[2017-08-09] MEDS: gabapentin 300mg capsule PO SCH ×3 (08:16→21:05)
[2017-08-09] MEDS: duloxetine 30mg CAPSULE.DR PO SCH ×2 (08:16→12:58)
[2017-08-09] MEDS: LORazepam 0.5 MG tablet PO PRN ×2 (12:58→18:42)
[2017-08-09] MEDS: HYDROcodone/acetaminophen 5mg/325mg tablet PO PRN (12:59)
[2017-08-09] MEDS: nystatin/triamcinolone cream 15gm TP SCH ×2 (13:43→21:08)
[2017-08-09 19:06] VITALS: BP 100/67
[2017-08-09] MEDS: prazosin 1mg capsule PO SCH (21:00)
[2017-08-09] MEDS: quetiapine 100mg tablet PO SCH (21:05)
[2017-08-09] MEDS: olanzapine 10mg tablet PO SCH (21:05)
[2017-08-10] MEDS: tizanidine 4mg tablet PO PRN ×2 (01:11→07:56)
[2017-08-10] MEDS: HYDROcodone/acetaminophen 5mg/325mg tablet PO PRN (05:26)
[2017-08-10] MEDS: HYDROchlorothiazide 12.5mg capsule PO SCH (07:33)
[2017-08-10] MEDS: lisinopril 20mg tablet PO SCH (07:33)
[2017-08-10] MEDS: butalbital/acetaminophen/caffeine (Fioricet) tablet PO PRN (07:33)
[2017-08-10] MEDS: duloxetine 30mg CAPSULE.DR PO SCH (07:34)
[2017-08-10] MEDS: gabapentin 300mg capsule PO SCH (07:34)
[2017-08-10] MEDS ORDERED: PRAZ1CAP5 PO (07:56)
[2017-08-10] MEDS ORDERED: OLAN10TA19 PO (07:56)
[2017-08-10] MEDS ORDERED: GABA300C PO (07:56)
[2017-08-10] MEDS ORDERED: ATI0.5T PO (07:56)
[2017-08-10] MEDS ORDERED: LISI-600 PO (07:56)
[2017-08-10] MEDS ORDERED: CARB200C4 PO (07:56)
[2017-08-10] MEDS ORDERED: QUET50TA22 PO (07:56)
[2017-08-10] MEDS ORDERED: QUET400T12 PO (07:56)
[2017-08-10] MEDS ORDERED: DULO60CA64 PO (07:56)
[2017-08-10] MEDS ORDERED: HYDR12.5 PO (07:56)
[2017-08-10] MEDS ORDERED: BUTA1TAB54 PO (07:56)
[2017-08-10 08:00] VITALS: BP 115/73
[2017-08-10] MEDS: nystatin/triamcinolone cream 15gm TP SCH (08:00)
[2017-08-10] MEDS: LORazepam 0.5 MG tablet PO PRN (11:00)
[2017-08-13] MEDS ORDERED: QUET25TA PO (04:25)
[2017-08-13] MEDS ORDERED: DULO-31 PO (04:25)
[2017-08-13] MEDS ORDERED: GABA600T2 PO (04:40)
[2017-08-13] MEDS ORDERED: BUTA1TAB54 PO (04:40)
[2017-08-13] MEDS ORDERED: HYDR12.5 PO (04:40)
[2017-08-13] MEDS ORDERED: QUET-1 PO (04:42)
[2017-08-13] MEDS ORDERED: PRAZ2CAP2 PO (04:42)
[2017-08-13] MEDS ORDERED: LISI-600 PO (04:42)
== END 2017-08-10 12:25 | disposition home or self-care (01) | DRG 885 ==
LOC: ADULT MH 15:03
PROVIDERS: ADMIT Psychiatry & Neurology Psychiatry; ATTEND Psychiatry & Neurology Psychiatry
DX: F33.2 Major depressive disorder, recurrent severe without psychotic features (principal); R45.851 Suicidal ideations; F60.3 Borderline personality disorder; J45.909 Unspecified asthma, uncomplicated; M54.9 Dorsalgia, unspecified; G47.09 Other insomnia; I10 Essential (primary) hypertension; F43.10 Post-traumatic stress disorder, unspecified; G89.29 Other chronic pain; N83.209 Unspecified ovarian cyst, unspecified side; F17.210 Nicotine dependence, cigarettes, uncomplicated; Z90.49 Acquired absence of other specified parts of digestive tract; Z98.51 Tubal ligation status; Z88.6 Allergy status to analgesic agent; Z88.1 Allergy status to other antibiotic agents; Z88.0 Allergy status to penicillin; Z88.2 Allergy status to sulfonamides; Z88.8 Allergy status to other drugs, medicaments and biological substances; Z79.899 Other long term (current) drug therapy; Z86.73 Personal history of transient ischemic attack (TIA), and cerebral infarction without residual deficits; Z82.49 Family history of ischemic heart disease and other diseases of the circulatory system; Z83.3 Family history of diabetes mellitus; Z83.42 Family history of familial hypercholesterolemia; Z84.89 Family history of other specified conditions
CPT/HCPCS: 36415; 80061; 83036; 87070; J3490

== ENCOUNTER 2017-08-20 18:47 | Emergency (ER) | payer MEDICARE, MEDICAID ==
[~2017-08-20] VITALS: Ht 165.1 cm; Wt 117.0 kg
[~2017-08-20 18:47] MED LIST changes: -ATI0.5T PO; -BUTA-281 PO; -BUTA1CAP44 PO; +BUTA1TAB54 PO; -CARB200T40 PO; +DULO-31 PO; -DULO30CA51 PO; +HYDR12.5 PO; +LISI-600 PO; -METH500T6 PO; -OLAN10TA19; +PRAZ1CAP5 PO; +QUET-1 PO; +QUET25TA PO; -QUET300T19 PO; +QUET400T12 PO; -TOP25T PO
[2017-08-20 19:01] VITALS: BP 150/89
[2017-08-20] MEDS ORDERED: orphenadrine citrate 60mg/2ml inj. IM ONE (19:50)
[2017-08-20] MEDS ORDERED: METH500T PO (19:51)
[2017-08-20] MEDS ORDERED: LIDO5CRE18 TOP (19:51)
[2017-08-25] MEDS ORDERED: PHE25R PR (10:50)
[2017-08-25] MEDS ORDERED: PROC-8 PO (10:50)
[2017-09-21] MEDS ORDERED: TIZA4TAB11 PO (21:25)
== END 2017-08-20 20:00 | disposition home or self-care (01) ==
LOC: ER 18:48
DX: M54.42 Lumbago with sciatica, left side (principal); I10 Essential (primary) hypertension; G89.29 Other chronic pain; F17.200 Nicotine dependence, unspecified, uncomplicated; Z90.49 Acquired absence of other specified parts of digestive tract; Z98.51 Tubal ligation status; Z88.8 Allergy status to other drugs, medicaments and biological substances; Z79.899 Other long term (current) drug therapy; Z88.0 Allergy status to penicillin; Z88.1 Allergy status to other antibiotic agents; Z88.6 Allergy status to analgesic agent
CPT/HCPCS: 96372; 99283; J2360

== ENCOUNTER 2017-09-29 01:53 | Emergency (ER) | payer MEDICARE, MEDICAID ==
[~2017-09-29] VITALS: Ht 165.1 cm; Wt 126.1 kg
[~2017-09-29 01:53] MED LIST changes: +LIDO5CRE18 TOP; +METH500T PO; +PHE25R PR; +PROC-8 PO; +TIZA4TAB11 PO
[2017-09-29 02:39] LABS: PROTHROMBIN TIME 9.9 SECONDS (9.0-12.0)
[2017-09-29 02:42] LABS: BASOPHILS # (AUTO) 0.1 X10'3 (0-0.2); BASOPHILS % (AUTO) 0.5 % (0-1); EOSINOPHILS # (AUTO) 0.1 X10'3 (0-0.9); HEMATOCRIT 44.7 % (35.0-45.0); HEMOGLOBIN 14.5 g/dl (12.0-16.0); LYMPHOCYTES # (AUTO) 3.2 X10'3 (1.1-4.8); LYMPHOCYTES % (AUTO) 24.7 % (21-51); MEAN CORPUSCULAR HEMOGLOBIN 28.7 PG (27.0-31.0); MEAN CORPUSCULAR HGB CONC 32.4 % (33.0-36.5); MEAN CORPUSCULAR VOLUME 88.7 FL (78-98); MONOCYTES # (AUTO) 0.6 X10'3 (0-0.9); MONOCYTES % (AUTO) 4.7 % (2-12); NEUTROPHILS % (AUTO) 69.1 % (42-75); PLATELET COUNT 291 X10'3 (140-440); RED BLOOD COUNT 5.04 X10'6 (4.20-5.60); RED CELL DISTRIBUTION WIDTH 13.4 % (11.5-14.5)
[2017-09-29 02:43] LABS: ALANINE AMINOTRANSFERASE 16 U/L (12-78); ALBUMIN 3.1 G/DL (3.4-5.0); ALBUMIN/GLOBULIN RATIO 0.7 (1.1-1.5); ALKALINE PHOSPHATASE 130 IU/L (46-116); ANION GAP 11 (8-16); ASPARTATE AMINO TRANSFERASE 11 U/L (10-37); BILIRUBIN,TOTAL 0.2 MG/DL (0.1-1.0); BLOOD UREA NITROGEN 12 MG/DL (7-18); BUN/CREATININE RATIO 11.8 (6.6-38.0); CALCIUM 9.9 MG/DL (8.5-10.1); CHLORIDE 104 MMOL/L (99-107); CREATININE 1.02 MG/DL (0.40-0.90); GLUCOSE 116 MG/DL (70-104); POTASSIUM 3.7 MMOL/L (3.5-5.1); SODIUM 140 MMOL/L (135-145); TOTAL CARBON DIOXIDE 25.4 MMOL/L (24-32); TOTAL PROTEIN 7.4 G/DL (6.4-8.2); eGFR 60 ML/MIN
[2017-09-29 03:42] LABS: URINE HCG NEGATIVE (NEG)
[2017-09-29 03:48] LABS: CLARITY,URINE SLIGHTLY CLOUDY (Clear); COLOR,URINE YELLOW (Yellow); GLUCOSE, URINE NEGATIVE (Neg); KETONES,URINE NEGATIVE (Neg); LEUKOCYTE ESTERASE ,URINE NEGATIVE (Neg); NITRITES, URINE NEGATIVE (Neg); OCCULT BLOOD,URINE NEGATIVE (Neg); PROTEIN,URINE NEGATIVE (Neg); UROBILINOGEN,URINE 0.2 E.U/dL (0.2-1.0)
[2017-09-29 04:21] LABS: UA COLLECTION TYPE CLN CATCH MIDSTREAM
[2017-09-29 04:22] LABS: BACTERIA,URINE 1+ /HPF (Neg); RBC,URINE NONE SEEN /HPF (0-2); SQUAMOUS EPITHELIAL CELL,UR MANY /LPF (FEW); WBC,URINE 0-4 /HPF (0-4)
[2017-09-29] MEDS ORDERED: ondansetron/PF 4mg/2ml inj IV ONE (05:05)
[2017-09-29] MEDS ORDERED: morphine 4 MG/ML inj SYRINge IV ONE (05:05)
[2017-09-29 06:07] VITALS: BP 119/74
== END 2017-09-29 07:26 | disposition home or self-care (01) ==
LOC: ER 01:54
DX: R10.9 Unspecified abdominal pain (principal); R11.2 Nausea with vomiting, unspecified; I10 Essential (primary) hypertension; G89.29 Other chronic pain; Z87.442 Personal history of urinary calculi; Z86.73 Personal history of transient ischemic attack (TIA), and cerebral infarction without residual deficits; Z90.49 Acquired absence of other specified parts of digestive tract; Z98.51 Tubal ligation status; Z98.890 Other specified postprocedural states; Z88.0 Allergy status to penicillin; Z91.013 Allergy to seafood; Z88.8 Allergy status to other drugs, medicaments and biological substances; Z79.899 Other long term (current) drug therapy
CPT/HCPCS: 36415; 74176; 80053; 81001; 81025; 85025; 85610; 96374; 96375; 99285; J2270; J2405; J7030

== ENCOUNTER 2017-10-05 11:08 | Emergency (ER) | payer MEDICARE, MEDICAID ==
[~2017-10-05] VITALS: Ht 165.1 cm; Wt 126.0 kg
[2017-10-05] MEDS ORDERED: dexamethasone sod phosphate 10mg/ml inj IV STA (13:16)
[2017-10-05] MEDS ORDERED: normal saline 1000ML IV soln IVB ONE (13:20)
[2017-10-05] MEDS ORDERED: metoclopramide 5 mg/ml inj IV ONE (13:20)
[2017-10-05] MEDS ORDERED: BUTA-281 PO (14:27)
[2017-10-05] MEDS ORDERED: ONDA4TAB6 PO (14:27)
[2017-10-05 15:42] VITALS: BP 133/90
== END 2017-10-05 15:44 | disposition home or self-care (01) ==
LOC: ER 11:09
DX: G43.909 Migraine, unspecified, not intractable, without status migrainosus (principal); H53.2 Diplopia; I10 Essential (primary) hypertension; G89.29 Other chronic pain; Z86.73 Personal history of transient ischemic attack (TIA), and cerebral infarction without residual deficits; Z90.49 Acquired absence of other specified parts of digestive tract; Z88.0 Allergy status to penicillin; Z88.1 Allergy status to other antibiotic agents; Z88.6 Allergy status to analgesic agent; Z88.2 Allergy status to sulfonamides; Z91.013 Allergy to seafood; Z88.8 Allergy status to other drugs, medicaments and biological substances; Z79.899 Other long term (current) drug therapy
CPT/HCPCS: 96374; 96375; 99284; J1100; J2765; J7030

== ENCOUNTER 2017-10-30 11:15 | Emergency (ER) | payer MEDICARE, MEDICAID ==
[~2017-10-30] VITALS: Ht 167.6 cm; Wt 125.0 kg
[~2017-10-30 11:15] MED LIST changes: +BUTA-281 PO; +ONDA4TAB6 PO
[2017-10-30 11:30] VITALS: BP 166/113
[2017-10-30] MEDS ORDERED: ketorolac trometh inj. 60 MG/2 ML VIAL IM ONE ×2 (11:45)
== END 2017-10-30 12:00 | disposition home or self-care (01) ==
LOC: ER 11:15
DX: S29.019A Strain of muscle and tendon of unspecified wall of thorax, initial encounter (principal); G43.909 Migraine, unspecified, not intractable, without status migrainosus; I10 Essential (primary) hypertension; G89.29 Other chronic pain; Z87.442 Personal history of urinary calculi; Z86.73 Personal history of transient ischemic attack (TIA), and cerebral infarction without residual deficits; Z90.49 Acquired absence of other specified parts of digestive tract; Z98.890 Other specified postprocedural states; Z88.0 Allergy status to penicillin; Z88.8 Allergy status to other drugs, medicaments and biological substances; Z88.2 Allergy status to sulfonamides; Z91.013 Allergy to seafood; Z79.899 Other long term (current) drug therapy; X58.XXXA Exposure to other specified factors, initial encounter; Y93.89 Activity, other specified; Y92.89 Other specified places as the place of occurrence of the external cause; Y99.8 Other external cause status
CPT/HCPCS: 99281; J1885

== ENCOUNTER 2017-11-19 15:33 | Emergency (ER) | payer MEDICARE, MEDICAID ==
[~2017-11-19] VITALS: Ht 565.3 cm; Wt 124.5 kg
[2017-11-19 15:37] VITALS: BP 151/87
[2017-11-19] MEDS ORDERED: LORazepam 2 mg/ml vial IM ONE (15:50)
== END 2017-11-19 16:48 | disposition home or self-care (01) ==
LOC: ER 15:34
DX: F41.9 Anxiety disorder, unspecified (principal); R25.1 Tremor, unspecified; G43.909 Migraine, unspecified, not intractable, without status migrainosus; I10 Essential (primary) hypertension; G89.29 Other chronic pain; Z90.49 Acquired absence of other specified parts of digestive tract; Z98.51 Tubal ligation status; Z98.890 Other specified postprocedural states; Z88.0 Allergy status to penicillin; Z88.1 Allergy status to other antibiotic agents; Z88.8 Allergy status to other drugs, medicaments and biological substances; Z79.899 Other long term (current) drug therapy
CPT/HCPCS: 93005; 96372; 99284; J2060

== ENCOUNTER 2017-11-30 18:23 | Emergency (ER) | payer MEDICARE, MEDICAID ==
[~2017-11-30] VITALS: Ht 162.6 cm; Wt 127.0 kg
[2017-11-30 18:27] VITALS: BP 174/139
[2017-11-30 19:39] LABS: BASOPHILS # (AUTO) 0.1 X10'3 (0-0.2); BASOPHILS % (AUTO) 0.6 % (0-1); EOSINOPHILS # (AUTO) 0.5 X10'3 (0-0.9); EOSINOPHILS % (AUTO) 5.3 % (0-6); HEMOGLOBIN 14.3 g/dl (12.0-16.0); LYMPHOCYTES # (AUTO) 2.7 X10'3 (1.1-4.8); LYMPHOCYTES % (AUTO) 26.4 % (21-51); MEAN CORPUSCULAR HEMOGLOBIN 30.4 PG (27.0-31.0); MEAN CORPUSCULAR HGB CONC 34.8 % (33.0-36.5); MEAN CORPUSCULAR VOLUME 87.3 FL (78-98); MEAN PLATELET VOLUME 8.2 FL (7.4-10.4); MONOCYTES # (AUTO) 0.7 X10'3 (0-0.9); MONOCYTES % (AUTO) 6.8 % (2-12); NEUTROPHILS # (AUTO) 6.2 X10'3 (1.8-7.7); NEUTROPHILS % (AUTO) 60.9 % (42-75); PLATELET COUNT 270 X10'3 (140-440); WHITE BLOOD COUNT 10.2 X10'3 (4.5-11.0)
[2017-11-30 19:52] LABS: ALANINE AMINOTRANSFERASE 17 U/L (12-78); ALBUMIN/GLOBULIN RATIO 0.7 (1.1-1.5); ALKALINE PHOSPHATASE 117 IU/L (46-116); ANION GAP 10 (8-16); ASPARTATE AMINO TRANSFERASE 11 U/L (10-37); BILIRUBIN,TOTAL 0.2 MG/DL (0.1-1.0); BLOOD UREA NITROGEN 10 MG/DL (7-18); BUN/CREATININE RATIO 12.8 (6.6-38.0); CALCIUM 9.7 MG/DL (8.5-10.1); CHLORIDE 104 MMOL/L (99-107); CREATININE 0.78 MG/DL (0.40-0.90); GLUCOSE 103 MG/DL (70-104); POTASSIUM 3.4 MMOL/L (3.5-5.1); SODIUM 138 MMOL/L (135-145); TOTAL CARBON DIOXIDE 24.1 MMOL/L (24-32); TOTAL PROTEIN 7.2 G/DL (6.4-8.2); eGFR 82 ML/MIN
[2017-11-30 20:01] LABS: ETHANOL < 0.010 GM/DL (0.0-0.010)
[2017-11-30 20:06] LABS: ACETAMINOPHEN < 2.0 UG/ML (10-30)
[2017-11-30 20:09] LABS: CLARITY,URINE Clear (Clear); COLOR,URINE Yellow (Yellow); GLUCOSE, URINE Negative (Neg); KETONES,URINE Negative (Neg); LEUKOCYTE ESTERASE ,URINE Negative (Neg); NITRITES, URINE Negative (Neg); OCCULT BLOOD,URINE Negative (Neg); PROTEIN,URINE Negative (Neg); URINE HCG NEGATIVE (NEG)
[2017-11-30 20:10] LABS: UA COLLECTION TYPE STRAIGHT CATH
[2017-11-30 20:21] LABS: URINE AMPHETAMINE SCREEN NEGATIVE (Neg); URINE BARBITUATE SCREEN NEGATIVE (Neg); URINE BENZODIAZEPINES SCREEN NEGATIVE (Neg); URINE CANNABINOID SCREEN NEGATIVE (Neg); URINE COCAINE SCREEN NEGATIVE (Neg); URINE METHADONE SCREEN NEGATIVE (Neg); URINE OPIATE SCREEN NEGATIVE (Neg); URINE PHENCYCLIDINE SCREEN NEGATIVE (Neg)
== END 2017-11-30 23:50 ==
LOC: ER 18:24
DX: F32.9 Major depressive disorder, single episode, unspecified (principal); F43.10 Post-traumatic stress disorder, unspecified; G43.909 Migraine, unspecified, not intractable, without status migrainosus; I10 Essential (primary) hypertension; G89.29 Other chronic pain; Z90.49 Acquired absence of other specified parts of digestive tract; Z98.51 Tubal ligation status; Z88.1 Allergy status to other antibiotic agents; Z88.2 Allergy status to sulfonamides; Z91.013 Allergy to seafood; Z79.899 Other long term (current) drug therapy
CPT/HCPCS: 36415; 80053; 80305; 80320; 80329; 81003; 81025; 84443; 85025; 99284; 99285

== ENCOUNTER 2017-11-30 22:30 | Inpatient (IN) | payer MEDICARE, MEDICAID ==
[~2017-11-30] VITALS: Ht 162.6 cm; Wt 128.0 kg
[2017-12-01 00:53] VITALS: BP 120/81
[2017-12-01] MEDS ORDERED: albuterol 2.5 MG/3 ML nebule NEB PRN (00:55)
[2017-12-01] MEDS ORDERED: proCHLORperazine 10mg tablet PO PRN (00:55)
[2017-12-01] MEDS ORDERED: tizanidine 4mg tablet PO ONE (01:10)
[2017-12-01] MEDS ORDERED: quetiapine 100mg tablet PO ONE (01:10)
[2017-12-01] MEDS ORDERED: acetaminophen 325mg tablet PO PRN ×2 (01:25)
[2017-12-01] MEDS ORDERED: magnesium hydroxide 30ml (MOM) UD suspension PO PRN (01:30)
[2017-12-01] MEDS ORDERED: mag hydrox/Alum hydrox/simeth 30ml oral suspension PO PRN (01:30)
[2017-12-01] MEDS ORDERED: proMETHazine 25mg rectal suppository RC SCH (02:00)
[2017-12-01] MEDS ORDERED: ondansetron 4mg rapidly disintigrating tab PO SCH (02:00)
[2017-12-01 07:05] LABS: HEMOGLOBIN A1C 5.5 % (4.5-6.2)
[2017-12-01 07:13] LABS: CHOL/HDL RATIO 3.7 (0.00-4.99); CHOLESTEROL 159 MG/DL (0-200); HDL CHOLESTEROL 43 MG/DL (35-60); LDL CHOLESTEROL 92 MG/DL (50-100); TRIGLYCERIDES 123 MG/DL (20-135)
[2017-12-01] MEDS: lisinopril 20mg tablet PO SCH (07:23)
[2017-12-01] MEDS: butalbital/acetaminophen/caffeine (Fioricet) tablet PO PRN ×2 (07:23→16:18)
[2017-12-01 08:00] VITALS: BP 149/97
[2017-12-01] MEDS ORDERED: HYDROchlorothiazide 12.5mg capsule PO SCH (08:00)
[2017-12-01] MEDS ORDERED: butalbital/acetaminophen/caffeine (Fioricet) tablet PO SCH (08:00)
[2017-12-01] MEDS ORDERED: tizanidine 4mg tablet PO SCH (08:00)
[2017-12-01] MEDS ORDERED: LIDOCAINE TOP SCH (08:00)
[2017-12-01] MEDS ORDERED: gabapentin 300mg capsule PO SCH (08:00)
[2017-12-01] MEDS ORDERED: non-formulary drug (Methocarbamol (Robaxin) 1 TAB) PO SCH (08:00)
[2017-12-01] MEDS: tizanidine 4mg tablet PO PRN (09:53)
[2017-12-01] MEDS ORDERED: potassium Cl 40MEQ/NS 500ml 500 ML IV PRN ×2 (14:00)
[2017-12-01] MEDS ORDERED: potassium Cl 20 mEq SR tablet PO PRN ×2 (14:00)
[2017-12-01 15:52] LABS: MAGNESIUM 1.7 MG/DL (1.5-2.4); POTASSIUM 4.1 MMOL/L (3.5-5.1)
[2017-12-01] MEDS: HYDROcodone/acetaminophen 5mg/325mg tablet PO PRN ×2 (16:06→21:01)
[2017-12-01] MEDS: gabapentin 400mg capsule PO SCH (16:14)
[2017-12-01 19:00] VITALS: BP 149/97
[2017-12-01] MEDS: QUEtiapine 25mg tablet PO PRN (19:14)
[2017-12-01] MEDS: prazosin 1mg capsule PO SCH (20:59)
[2017-12-01] MEDS ORDERED: non-formulary drug (Prazosin Hcl 1 CAP) PO SCH (21:00)
[2017-12-01] MEDS ORDERED: non-formulary drug (Quetiapine Fumarate 1 TAB) PO SCH (21:00)
[2017-12-01] MEDS: quetiapine 100mg tablet PO SCH (21:00)
[2017-12-02] MEDS: gabapentin 400mg capsule PO SCH ×3 (00:19→15:41)
[2017-12-02 08:00] VITALS: BP 135/73
[2017-12-02] MEDS ORDERED: venlafaxine XR 37.5mg cap (Q24H) PO ONE (08:00)
[2017-12-02] MEDS: lisinopril 20mg tablet PO SCH (08:12)
[2017-12-02] MEDS: HYDROcodone/acetaminophen 5mg/325mg tablet PO PRN ×3 (08:13→21:13)
[2017-12-02] MEDS: butalbital/acetaminophen/caffeine (Fioricet) tablet PO PRN ×2 (11:04→19:08)
[2017-12-02] MEDS: tizanidine 4mg tablet PO PRN ×2 (15:44→20:39)
[2017-12-02 19:00] VITALS: BP 115/53
[2017-12-02] MEDS: quetiapine 100mg tablet PO SCH (21:11)
[2017-12-02] MEDS: prazosin 1mg capsule PO SCH (21:13)
[2017-12-03] MEDS: gabapentin 400mg capsule PO SCH ×4 (00:42→23:55)
[2017-12-03 07:53] VITALS: BP 128/86
[2017-12-03] MEDS: lisinopril 20mg tablet PO SCH (08:00)
[2017-12-03] MEDS: venlafaxine XR 75mg capsule (Q24H) PO SCH (08:00)
[2017-12-03] MEDS: tizanidine 4mg tablet PO PRN (08:27)
[2017-12-03] MEDS: HYDROcodone/acetaminophen 5mg/325mg tablet PO PRN ×2 (08:29→17:38)
[2017-12-03] MEDS: butalbital/acetaminophen/caffeine (Fioricet) tablet PO PRN ×2 (11:35→18:22)
[2017-12-03] MEDS: QUEtiapine 25mg tablet PO PRN (12:05)
[2017-12-03 20:00] VITALS: BP 115/56
[2017-12-03] MEDS: quetiapine 100mg tablet PO SCH (21:19)
[2017-12-03] MEDS: prazosin 1mg capsule PO SCH (21:19)
[2017-12-04] MEDS: HYDROcodone/acetaminophen 5mg/325mg tablet PO PRN ×4 (01:46→22:01)
[2017-12-04 08:00] VITALS: BP 136/92
[2017-12-04] MEDS: gabapentin 400mg capsule PO SCH ×2 (08:00→16:43)
[2017-12-04] MEDS: venlafaxine XR 75mg capsule (Q24H) PO SCH (08:00)
[2017-12-04] MEDS: lisinopril 20mg tablet PO SCH (08:00)
[2017-12-04] MEDS: butalbital/acetaminophen/caffeine (Fioricet) tablet PO PRN ×3 (08:00→18:35)
[2017-12-04] MEDS: tizanidine 4mg tablet PO PRN ×3 (09:18→18:35)
[2017-12-04 20:30] VITALS: BP 123/94
[2017-12-04] MEDS: quetiapine 100mg tablet PO SCH (21:48)
[2017-12-04] MEDS: prazosin 5mg capsule PO SCH (21:48)
[2017-12-05] MEDS: gabapentin 400mg capsule PO SCH ×3 (00:45→16:22)
[2017-12-05 08:00] VITALS: BP 128/89
[2017-12-05] MEDS: tizanidine 4mg tablet PO PRN ×3 (08:14→21:24)
[2017-12-05] MEDS: venlafaxine XR 75mg capsule (Q24H) PO SCH (08:14)
[2017-12-05] MEDS: butalbital/acetaminophen/caffeine (Fioricet) tablet PO PRN ×2 (08:14→13:04)
[2017-12-05] MEDS: lisinopril 20mg tablet PO SCH (08:14)
[2017-12-05] MEDS: HYDROcodone/acetaminophen 5mg/325mg tablet PO PRN (11:33)
[2017-12-05] MEDS: QUEtiapine 25mg tablet PO PRN (18:37)
[2017-12-05 19:51] VITALS: BP 105/65
[2017-12-05] MEDS: quetiapine 100mg tablet PO SCH (21:24)
[2017-12-05] MEDS: prazosin 5mg capsule PO SCH (21:25)
[2017-12-06] MEDS: gabapentin 400mg capsule PO SCH ×3 (00:14→15:48)
[2017-12-06 08:00] VITALS: BP 128/82
[2017-12-06] MEDS: venlafaxine XR 75mg capsule (Q24H) PO SCH (08:02)
[2017-12-06] MEDS: QUEtiapine 25mg tablet PO PRN (08:03)
[2017-12-06] MEDS: lisinopril 20mg tablet PO SCH (08:03)
[2017-12-06] MEDS: tizanidine 4mg tablet PO PRN ×2 (08:03→15:48)
[2017-12-06] MEDS ORDERED: QUET400T12 PO (14:58)
[2017-12-06] MEDS ORDERED: VENL75CA61 PO (14:58)
[2017-12-06] MEDS ORDERED: PRAZ5CAP2 PO (14:58)
[2017-12-06] MEDS ORDERED: GABA800T2 PO (14:58)
[2017-12-06] MEDS ORDERED: quetiapine 100mg tablet PO SCH (21:00)
[2017-12-06] MEDS ORDERED: QUEtiapine 25mg tablet PO SCH (21:00)
== END 2017-12-06 16:30 | disposition home or self-care (01) | DRG 885 ==
LOC: ED HOLD 22:30 → ADULT MH 23:20
PROVIDERS: ADMIT Psychiatry & Neurology Psychiatry; ATTEND Psychiatry & Neurology Psychiatry
DX: F33.1 Major depressive disorder, recurrent, moderate (principal); R45.851 Suicidal ideations; Z68.42 Body mass index [BMI] 45.0-49.9, adult; E87.6 Hypokalemia; I10 Essential (primary) hypertension; E66.9 Obesity, unspecified; G89.4 Chronic pain syndrome; M54.9 Dorsalgia, unspecified; F43.10 Post-traumatic stress disorder, unspecified; F60.9 Personality disorder, unspecified; F60.3 Borderline personality disorder; J45.909 Unspecified asthma, uncomplicated; F17.210 Nicotine dependence, cigarettes, uncomplicated; Z88.8 Allergy status to other drugs, medicaments and biological substances; Z88.0 Allergy status to penicillin; Z88.1 Allergy status to other antibiotic agents; Z91.013 Allergy to seafood; Z86.73 Personal history of transient ischemic attack (TIA), and cerebral infarction without residual deficits; Z83.42 Family history of familial hypercholesterolemia; Z82.0 Family history of epilepsy and other diseases of the nervous system; Z82.49 Family history of ischemic heart disease and other diseases of the circulatory system; Z71.3 Dietary counseling and surveillance
CPT/HCPCS: 36415; 80061; 83036; 83735; 84132; 87070